=== PATIENT | male | born 1930 | race Caucasian/White ===

== ENCOUNTER 2017-07-19 13:23 | Inpatient (IN) | payer MEDICARE, OTHER ==
[2017-07-20] MEDS ORDERED: CEFAZOLIN/Water 2 GM/20 ML SYRINGE ONE (06:15)
[2017-07-20] MEDS ORDERED: Fentanyl 250 MCG/5 ML VIAL ONE ×2 (06:37→17:35)
[2017-07-20] MEDS ORDERED: Midazolam HCl 5 mg/5 ml Vial ONE (06:37)
[2017-07-20] MEDS ORDERED: Vecuronium 10 MG VIAL ONE ×2 (06:37→11:20)
[2017-07-20] MEDS ORDERED: Heparin 10,000 UNITS/1 ML VIAL 30,000 UNITS in Sodium Chloride 0.9% 1,000 ML FS SCH (07:00)
[2017-07-20] MEDS ORDERED: Mannitol 12.5 GM/50 ML ONE ×2 (07:31→11:20)
[2017-07-20] MEDS ORDERED: DOPamine 400 MG/D5W 250 ML 0 ML ONE (07:31)
[2017-07-20] MEDS ORDERED: Ropivacaine 0.2% HCl/PF 20 ML ONE (08:20)
[2017-07-20] MEDS ORDERED: Heparin 5,000 UNITS/ML VIAL ONE (08:20)
[2017-07-20] MEDS ORDERED: Nitroglycerin 50 MG/250 ML BOT 250 ML ONE (08:42)
[2017-07-20] MEDS ORDERED: Protamine Sulfate 50 MG/5 ML VIAL ONE (09:10)
[2017-07-20] MEDS ORDERED: Ropivacaine HCl/PF 500 ML in Premix Bag 1 BAG NERVE BLCK SCH (09:15)
[2017-07-20] MEDS ORDERED: Sodium Bicarb 50 MEQ/50 ML Abboject 8.4% SYRINGE ONE ×3 (10:23→19:17)
[2017-07-20] MEDS ORDERED: Albumin 25% 0 ML ONE (11:06)
[2017-07-20] MEDS ORDERED: Protamine Sulfate 250 MG/25 ML VIAL ONE (11:20)
[2017-07-20] MEDS ORDERED: Nitroglycerin 50 MG/250 ML BOT ONE (11:20)
[2017-07-20] MEDS ORDERED: Calcium Chloride 1 GM/10 ML Abboject SYRINGE ONE ×2 (11:20→11:23)
[2017-07-20] MEDS ORDERED: Ondansetron HCl/PF 4 MG/2 ML Vial ONE (11:20)
[2017-07-20] MEDS ORDERED: Glycopyrrolate 0.2 MG/ML 5 ML SYRINGE ONE (11:20)
[2017-07-20] MEDS ORDERED: PHENYLEPHRINE-NS 100 MCG/ML 10 ML SYRINGE ONE ×2 (11:20→11:23)
[2017-07-20] MEDS ORDERED: PROPOFOL 200 MG/20 ML VIAL ONE ×2 (11:20→11:23)
[2017-07-20] MEDS ORDERED: ePHEDrine/0.9% NaCl/PF SYRINGE 50 mg/10 ml ONE (11:20)
[2017-07-20] MEDS ORDERED: Heparin 10,000 UNITS/ 10 ML VIAL ONE (11:20)
[2017-07-20] MEDS ORDERED: Dexamethasone 20 MG/5 ML VIAL ONE (11:20)
[2017-07-20] MEDS ORDERED: Sodium Bicarb 50 MEQ/50 ML VIAL ONE (11:20)
[2017-07-20] MEDS ORDERED: Lidocaine 1% PF 5 ML VIAL ONE (11:23)
[2017-07-20] MEDS ORDERED: Ondansetron HCl/PF 4 MG/2 ML Vial IVP PRN ×4 (11:36→12:22)
[2017-07-20] MEDS ORDERED: diphenhydrAMINE 50 MG/ML VIAL IVP PRN (11:36)
[2017-07-20] MEDS ORDERED: diphenhydrAMINE 25 MG CAP PO PRN (11:36)
[2017-07-20] MEDS ORDERED: Fentanyl 5000 MCG/250 ML CADD IVPB PRN (11:36)
[2017-07-20] MEDS ORDERED: Zolpidem Tartrate 5 MG TAB PO PRN (11:36)
[2017-07-20] MEDS ORDERED: Naloxone HCl 0.4 mg/ml Vial IV PRN (11:36)
[2017-07-20] MEDS ORDERED: diphenhydrAMINE 50 MG/ML VIAL IM PRN (11:36)
[2017-07-20] MEDS ORDERED: Communication Order-Pharmacy FS SCH (11:45)
[2017-07-20] MEDS ORDERED: fentaNYL Citrate/PF 2,000 MCG in Sodium Chloride 0.9% 60 ML IV PRN (12:15)
[2017-07-20] MEDS ORDERED: Acetaminophen 325 MG TAB PO PRN (12:22)
[2017-07-20] MEDS ORDERED: Nitroglycerin 50 MG/250 ML BOT 250 ML IVPB PRN (12:22)
[2017-07-20] MEDS ORDERED: HYDROcodone/Acetaminophen 5/325 mg Tablet PO PRN ×3 (12:22→22:00)
[2017-07-20] MEDS ORDERED: hydrALAZINE 20 MG/ML VIAL SLOW IVP PRN (12:22)
[2017-07-20] MEDS ORDERED: Promethazine HCl 25 MG/ML VIAL IM PRN (12:22)
[2017-07-20] MEDS ORDERED: Albumin 5% 500 ML ONE (12:36)
[2017-07-20] MEDS ORDERED: Albumin 25% 100 ML ONE (12:46)
[2017-07-20 13:06] LABS: Hemoglobin 10.7 g/dL (14.0-18.0); Mean Corpuscular HGB CONC 32.8 g/dL (32.0-36.0); Mean Corpuscular Hemoglobin 28.7 pg (27.0-31.0); Mean Corpuscular Volume 87.6 fl (80.0-94.0); Mean Platelet Volume 8.4 fL (7.4-10.4); Platelet Count 97 thou/uL (130-400); RBC Distribution Width 15.9 % (11.5-14.5); Red Blood Cell (RBC) Count 3.73 mill/uL (4.70-6.10); White Blood Cell (WBC) Count 20.1 thou/uL (4.8-10.8)
[2017-07-20] MEDS ORDERED: Acetaminophen 1,000 MG in Premix Bag 1 BAG IVPB SCH (13:15)
[2017-07-20] MEDS: Sodium Chloride 0.9% 1,000 ML IV SCH ×2 (13:16→20:51)
[2017-07-20 13:20] LABS: Anion Gap 14 mmol/L (10-20); BUN (Urea Nitrogen) 27 mg/dL (8.4-25.7); Calc. Creatinine Clearance 42 mL/min (70-130); Calcium 8.2 mg/dL (7.8-10.44); Carbon Dioxide 15 mmol/L (23-31); Chloride 114 mmol/L (98-107); Estimated GFR-MDRD 46; Glucose 165 mg/dL (83-110); Potassium 4.1 mmol/L (3.5-5.1); Sodium 139 mmol/L (136-145)
[2017-07-20 13:24] LABS: Actual Bicarbonate (HCO3a) 14.6 mEq/L (22-26); Base Excess (BEa) -10.6 mEq/L (0 (+/-) 2.5); CO2 Tension 29.8 mmHg (35.0-45.0); Calcium, Ionized 1.2 mmol/L (1.12-1.30); Hematocrit-ABG 25.8 % (42.0-52.0); Hemoglobin (Hb) 8.9 g/dL (14.0-18.0); pH, Arterial 7.31 (7.35-7.45)
[2017-07-20 13:25] LABS: Puncture Site ALINE
[2017-07-20 13:28] LABS: Anisocytosis SLIGHT = 6-15 cells (100X) (0-5/hpf); Band 10 % (5-11); Burr Cells SLIGHT = 2-5 cells (100X) (0-1/hpf); Elliptocytes SLIGHT = 2-5 cells (100X) (0-1/hpf); Eosinophils 1 % (0-10); Lymphocytes 9 % (21-51); MDiff Complete? YES; Monocytes 4 % (0-10); Neutrophil 76 % (42-75); Ovalocytes SLIGHT = 2-5 cells (100X) (0-1/hpf); PLT Morphology Comment Appears Decreased; Polychromasia SLIGHT = 2-3 cells (100X) (0-2/hpf)
[2017-07-20] MEDS: Sodium Bicarb 50 MEQ/50 ML Abboject 8.4% SYRINGE IVP SCH ×3 (13:52→17:22)
[2017-07-20] MEDS: Sodium Bicarb 50 MEQ/50 ML Abboject 8.4% SYRINGE ONE ×2 (13:53→17:22)
--- NOTE | 2017-07-20 14:00 | OP ---
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 An 9mm Hemashield common femoral artery to profunda femoris bypass repair of left common femoral artery aneurysm. 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 SURGEON: Shiva Gaspar M.D. ANESTHESIA: General endotracheal anesthesia. BOX LIDDER: Tadeo. INDICATIONS: The patient is an 87-year-old man with an enlarging juxtarenal abdominal aortic aneurysm and left common femoral artery aneurysm. He has complex aneurysmal disease that anatomically is not suitable for endovascular repair. He has low to moderate risk nuclear stress test with respect to cardiac risk and after discussing options with him and his family, he has elected to proceed with open repair. FINDINGS: A large juxtarenal abdominal aortic aneurysm with aneurysmal involvement of both common iliac arteries. The left common femoral was aneurysmal with an occluded superficial femoral artery. Postoperatively, the patient had a palpable right dorsalis pedis pulse and a dopplerable left posterior tibial pulse. NARRATIVE REPORT: After informed consent was obtained, the patient was taken to the operating room and placed in supine position on the operating table. After the induction of general anesthesia, the patient's torso, groins and lower extremities were prepped and draped in sterile fashion. The patient's right upper chest is prepped and draped in sterile fashion using the Seldinger technique. A triple-lumen central line kit was used to place a right subclavian central line. All three ports easily aspirated and flushed. The line was secured and dressed. The patient's torso, groins and lower extremities were then prepped and draped in sterile fashion. An oblique incision was made about a fingerbreadth below and parallel to the left groin crease and the common femoral artery aneurysm was easily appreciable. It was exposed up to its neck tortuous common femoral proximally, it extended down to the common femoral bifurcation. The SFA and profunda were isolated. That wound was packed off and then a vertical midline celiotomy incision was made from roughly xiphoid to pubis entering the upper abdomen. Initially, a brief visual and manual examination of the abdomen was undertaken. The colon was up over the liver as suggested by the patient's preoperative chest x-ray. The aneurysm was quite readily appreciable. Otherwise, there were no overt abnormalities noted. Self-retraining retractors were put into place after first having lysed the ligament of Treitz and incised retroperitoneal tissues overlying the aneurysm. The dissection was taken down onto the common femorals exposing and isolating the external and internal iliacs on either side. They were looped with umbilical tapes. The dissection was then carried out at the neck. The right and left renal arteries and the superior mesenteric artery were identified. The aneurysm wit up to the origin of the renal arteries necessitating suprarenal clamping. The patient was heparinized and given mannitol. After adequate circulation time of heparin, the iliac bifurcations were occluded using vascular clamps to do an en alka clamping of the external and internal iliacs on either side and then a CRAFOORD clamp was placed between the superior mesenteric and the renal arteries to clamp the neck of the aneurysm. The aneurysm was opened with electrocautery and scissors. Backbleeding from lumbars was controlled with silk ligatures. An 18 x 9 mm Hemashield graft was selected. The aortic portion of the graft was trimmed to length and then an end-to-end anastomosis was constructed from it to the aorta at the level of the renal arteries. The graft was flushed and the suture line inspected for hemostasis, which appeared grossly adequate. The clamp was moved down onto the graft to reestablish flow into the renal arteries for a suprarenal clamp time of 19 minutes. The iliac arteries were then bisected longitudinally, taking them down to the bifurcation where there were heavy transected. The right limb of the graft was trimmed to length with bevel orienting it such that the toe of the anastomosis would go on the medial apex of the internal iliac orifice and the heel at the lateral apex of the external iliac orifice. An end-to-end anastomosis was then constructed there with a running 5-0 Prolene. The iliacs were allowed to backbleed and the graft flushed and the suture lines secured. Antegrade flow is allowed first into the internal iliac and then into the external iliac. The left limb of the graft was then similarly anastomosed to the left common iliac bifurcation. The suture lines were inspected for gross hemostasis and then packed off with lap sponges and the aortic aneurysm bed reinspected for adequacy of control of the lumbars which required additional [id number]-cb-[id number] sutures to achieve adequate hemostasis. Proximal and distal control was established on the left femoral system and the femoral artery was opened. Small side branches between the proximal clamp and the bifurcation were controlled with Hemoclips. A portion of the 9 mm graft that had been excised from one of the limbs was anastomosed end-to-end to the common femoral artery. The superficial femoral artery proved to be occluded. The profunda was spatulated and an end-to-end anastomosis constructed there to reestablish flow into the deep femoral system. Protamine was administered. Hemostasis at the groin level required multiple small pledgeted sutures. There was one point on the proximal aortic suture line that also required a pledgeted suture to control suture line bleeding when hemostasis was adequate. The aneurysm was reapproximated with running Vicryl and over the graft and the retroperitoneal tissues reapproximated over that. The midline abdominal fascia was closed with double stranded #1 PDS. The groin wound was then irrigated and inspected for hemostasis. The aneurysm was closed with running Vicryl over the graft and then the subcutaneous tissue was reapproximated in deep and superficial layers of running Vicryl. The skin was closed with a 4-0 Vicryl subcuticular suture which was then reinforced with running nylon skin suture. The abdominal wound was irrigated and inspected for hemostasis. ON-Q painbuster catheters were introduced into the wound and then the subcutaneous tissue reapproximated over them. Skin was closed with running Vicryl subcuticular suture which was then reinforced with running nylon 5 mL of 0.2% ropivacaine were bolused in each of the 2 catheters been placed just superficial to the abdominal fascia. The patient was awakened and extubated in the operating room and taken to the Intensive Care Unit in stable condition. Estimated blood loss during the procedure was 2000 mL. The patient received 3500 mL of crystalloid, 100 mL of 25% albumin and 1508 mL of Cell Saver transfusion. Urine output was 160 mL. Instrument, needle, and sponge counts were correct. [facility]
--- NOTE | 2017-07-20 14:56 | RAD ---
CHEST ONE VIEW: History: Central line placement. Comparison: 07-19-17 FINDINGS: Cardiac silhouette is magnified and upper limits of normal in size. Pulmonary vascular is upper limit s of normal and accentuated by shallow inspiration. Tip of a right subclavian central venous catheter projects over the right atrium. Left subclavian pacer remains in place. No evidence of pneumothorax. IMPRESSION: 1. Right subclavian central venous catheter is in good radiographic position. 2. Borderline pulmonary vascular congestion. POS: [facility]
[2017-07-20 15:17] LABS: pH, Arterial 7.33 (7.35-7.45)
[2017-07-20 15:18] LABS: Actual Bicarbonate (HCO3a) 12.2 mEq/L (22-26); Base Excess (BEa) -12.5 mEq/L (0 (+/-) 2.5); CO2 Tension 23.6 mmHg (35.0-45.0); Hematocrit-ABG 20.4 % (42.0-52.0); Hemoglobin (Hb) 7.1 g/dL (14.0-18.0); O2 Tension (PaO2) 146.2 mmHg (80.0-100.0)
[2017-07-20 15:19] LABS: Calcium, Ionized 1.1 mmol/L (1.12-1.30); Puncture Site ALINE
[2017-07-20 15:51] LABS: Hemoglobin 7.5 g/dL (14.0-18.0)
[2017-07-20] MEDS ORDERED: Calcium Chloride 1 GM/10 ML Abboject SYRINGE IVP SCH (17:15)
[2017-07-20] MEDS ORDERED: Sodium Bicarb 50 MEQ/50 ML Abboject 8.4% SYRINGE IVP SCH (17:15)
[2017-07-20 17:23] LABS: Actual Bicarbonate (HCO3a) 9.6 mEq/L (22-26); Base Excess (BEa) -20.5 mEq/L (0 (+/-) 2.5); CO2 Tension 39.5 mmHg (35.0-45.0); Hematocrit-ABG 24.4 % (42.0-52.0); Hemoglobin (Hb) 9.5 g/dL (14.0-18.0); O2 Tension (PaO2) 124.6 mmHg (80.0-100.0); pH, Arterial 7.01 (7.35-7.45)
[2017-07-20 17:24] LABS: ALV-art Gradient 25.665 (0-20); Puncture Site ALINE
[2017-07-20] MEDS ORDERED: Midazolam HCl 2 mg/2 ml Vial ONE (17:35)
[2017-07-20] MEDS ORDERED: Fentanyl 100 MCG/2 ML VIAL ONE (17:35)
[2017-07-20 17:40] LABS: INR-International Normal Ratio 3.3; Prothrombin Time 35.4 SEC (12.0-14.7)
[2017-07-20 17:41] LABS: PTT 96.3 SEC (22.9-36.1)
[2017-07-20] MEDS ORDERED: Vasopressin 40 UNIT, Admixture Fee 1 EACH in Sodium Chloride 0.9% 100 ML IV SCH (17:45)
[2017-07-20] MEDS ORDERED: Heparin 10,000 UNITS/1 ML VIAL ONE (18:08)
[2017-07-20] MEDS: Acetaminophen 1,000 MG in Premix Bag 1 BAG IVPB SCH ×2 (20:52→23:19)
[2017-07-20 21:10] LABS: Actual Bicarbonate (HCO3a) 16.1 mEq/L (22-26); Base Excess (BEa) -10.1 mEq/L (0 (+/-) 2.5); CO2 Tension 36.6 mmHg (35.0-45.0); O2 Tension (PaO2) 425.2 mmHg (80.0-100.0); pH, Arterial 7.26 (7.35-7.45)
[2017-07-20 21:11] LABS: Calcium, Ionized 1.1 mmol/L (1.12-1.30); Hematocrit-ABG 26.5 % (42.0-52.0); Hemoglobin (Hb) 10.9 g/dL (14.0-18.0); Puncture Site LINE
--- NOTE | 2017-07-20 21:47 | RAD ---
AP CHEST: Indication: ET tube placement. IMPRESSION: ET tube tip is seen in the thoracic lumen. Right subclavian central venous catheter is unchanged. The re is a single lead pacemaker is similar. Pulmonary vascular and mild cardiomegaly persists. No pneum othorax is evident. POS: [facility]
[2017-07-20 22:36] LABS: Band 5 % (5-11); Hemoglobin 11.4 g/dL (14.0-18.0); Lymphocytes 13 % (21-51); MDiff Complete? YES; Mean Corpuscular HGB CONC 33.3 g/dL (32.0-36.0); Mean Corpuscular Hemoglobin 29.6 pg (27.0-31.0); Mean Corpuscular Volume 88.9 fl (80.0-94.0); Mean Platelet Volume 8.2 fL (7.4-10.4); Metamyelocyte 1 % (0-0); Monocytes 3 % (0-10); Neutrophil 77 % (42-75); PLT Morphology Comment Appears Decreased; Platelet Count 74 thou/uL (130-400); Polychromasia SLIGHT = 2-3 cells (100X) (0-2/hpf); RBC Distribution Width 14.4 % (11.5-14.5); Reactive Lymphocytes 1 % (0-10); Red Blood Cell (RBC) Count 3.84 mill/uL (4.70-6.10); White Blood Cell (WBC) Count 11.3 thou/uL (4.8-10.8)
[2017-07-20 22:39] LABS: Anion Gap 28 mmol/L (10-20); BUN (Urea Nitrogen) 27 mg/dL (8.4-25.7); Calc. Creatinine Clearance 31 mL/min (70-130); Calcium 8.3 mg/dL (7.8-10.44); Carbon Dioxide 17 mmol/L (23-31); Chloride 114 mmol/L (98-107); Estimated GFR-MDRD 37; Glucose 142 mg/dL (83-110); Potassium 4.3 mmol/L (3.5-5.1); Sodium 155 mmol/L (136-145)
[2017-07-20] MEDS ORDERED: Propofol 1,000 MG/100 ML VIAL IV PRN (23:03)
[2017-07-20] MEDS ORDERED: DISCONTINUE PREVIOUS NARCOTIC PAIN MEDICATIONS AND BENZODIAZEPINES FS SCH (23:03)
[2017-07-20] MEDS ORDERED: Propofol BOLUS 1,000 MG/100 ML VIAL IV PRN (23:03)
[2017-07-20] MEDS ORDERED: Morphine 4 MG/ML VIAL SLOW IVP PRN (23:03)
[2017-07-20] MEDS ORDERED: Fentanyl BOLUS 250 ML IVPB PRN (23:03)
[2017-07-20] MEDS ORDERED: Lorazepam 2 MG/ML VIAL SLOW IVP PRN (23:03)
[2017-07-20] MEDS ORDERED: fentaNYL Citrate/PF 2,000 MCG in Sodium Chloride 0.9% 60 ML IV SCH (23:03)
[2017-07-20 23:35] LABS: CO2 Tension 24.7 mmHg (35.0-45.0); pH, Arterial 7.41 (7.35-7.45)
[2017-07-20 23:36] LABS: O2 Tension (PaO2) 216.7 mmHg (80.0-100.0)
[2017-07-20 23:37] LABS: Actual Bicarbonate (HCO3a) 15.2 mEq/L (22-26); Hematocrit-ABG 27.3 % (42.0-52.0); Hemoglobin (Hb) 10.7 g/dL (14.0-18.0)
[2017-07-20 23:40] LABS: Puncture Site LINE
[2017-07-20 23:41] LABS: ALV-art Gradient 180.225 (0-20)
[2017-07-21 00:39] LABS: #Eosinphils 0.1 thou/uL (0.0-0.7); #Lymphocytes 0.9 thou/uL (1.20-3.40); #Monocytes 0.8 thou/uL (0.11-0.59); #Neutrophils 9.7 thou/uL (1.40-6.50); %Basophils 0.3 % (0.0-1.0); %Eosinophils 0.6 % (0.0-10.0); %Lymphocytes 8.1 % (21.0-51.0); %Monocytes 7.2 % (0.0-10.0); %Neutrophils 83.8 % (42.0-75.0); Hemoglobin 10.7 g/dL (14.0-18.0); Mean Corpuscular HGB CONC 33.6 g/dL (32.0-36.0); Mean Corpuscular Hemoglobin 28.7 pg (27.0-31.0); Mean Corpuscular Volume 85.3 fl (80.0-94.0); Mean Platelet Volume 8.5 fL (7.4-10.4); Platelet Count 63 thou/uL (130-400); RBC Distribution Width 14.3 % (11.5-14.5); Red Blood Cell (RBC) Count 3.72 mill/uL (4.70-6.10); White Blood Cell (WBC) Count 11.5 thou/uL (4.8-10.8)
[2017-07-21 00:51] LABS: Anion Gap 28 mmol/L (10-20); BUN (Urea Nitrogen) 29 mg/dL (8.4-25.7); Calc. Creatinine Clearance 28 mL/min (70-130); Calcium 8.3 mg/dL (7.8-10.44); Carbon Dioxide 17 mmol/L (23-31); Chloride 113 mmol/L (98-107); Estimated GFR-MDRD 33; Glucose 143 mg/dL (83-110); Potassium 4.2 mmol/L (3.5-5.1); Sodium 154 mmol/L (136-145)
--- NOTE | 2017-07-21 01:02 | OP ---
DATE OF PROCEDURE: 07/20/2017 PROCEDURES PERFORMED: Abdominal exploration and control of bleeding with repair of bilateral distal anastomoses. PREOPERATIVE DIAGNOSES: Bleeding, status post aortobiiliac repair of combined aortic and common aurelio c aneurysmal disease. POSTOPERATIVE DIAGNOSES: Bleeding, status post aortobiiliac repair of combined aortic and common charlie ac aneurysmal disease. SURGEON: Shiva Gaspar MD ANESTHESIA: General endotracheal anesthesia. INDICATIONS: Patient is an 87-year-old man with complex aneurysmal disease, who shortly postoperativ enio receiving IV narcotics for pain control, had a drop in his blood pressure that responded to volum e administration. He had been relatively volume dependent. During his original operation and after receiving about 2 liters of fluid, dropped his hemoglobin from the initial 10-12 range immediately po stoperatively down to around 7 in spite of his abdomen being soft and his groin incision for his femo ral aneurysm repair being soft. He also developed acidosis and while one could achieve transient imp rovements with transfusion and volume administration, bicarbonate, and pressors. He was becoming rel atively refractory to those maneuvers and is elected to return him to the operating room for empiric reexploration for possible bleeding. FINDINGS: Discrete punctate bleeding from the left graft to iliac anastomosis and oozing from the ri ght distal anastomosis with more discrete bleeding unmasked with manipulation. NARRATIVE REPORT: After informing the patient's , the patient was transported urgently to the op erating room and placed in the supine position on the operating table. General endotracheal anesthes ia was induced. His dressings were removed and his torso, groins, and lower extremities were prepped and draped in sterile fashion. The sutures of the abdominal incision were removed, and the abdomen re-entered and Kathi retractor put into place. While there was fair amount of old appearing blood in the abdominal cavity. Initially, there was no fresh appearing blood, but during a very brief xavier od of observation, some bright red blood could be appreciated welling up in between the sutures used retroperitonealize the aorta and the graft. The sutures were cut and removed and self-retaining retr actors were positioned. There was no bleeding coming from the mesentery or the proximal anastomosis. The left renal vein or any of the branch vessels near the neck of the aneurysm upon distal explorat ion, bleeding could be appreciated coming from the left distal anastomosis that was controlled with f forest pressure while additional retractors were brought into place. A eappnt-qi-kzsth Prolene suture fairly easily addressed, the bleeding coming from that suture line. Upon exploration of the right distal anastomosis, there was some oozing coming from the pilot point vessel near the anastomosis along the internal iliac in an attempt to buttress that with a suture that bega n bleeding far more profusely, which required several ozpmcx-rj-nxrwb Prolene sutures to bring under control. Upon reexploration of the right distal anastomosis prior to closure and additional bleeding point on the suture line was appreciated in it. This was controlled with a mvriox-lx-airmp suture. The aneurysm bed was again reinspected. No further ongoing bleeding was noted, although the patient was grossly coagulopathic consistent with the laboratory findings of a markedly prolonged INR. Plas ma was administered along with other blood products and the wounds packed off as the oozing came unde r better control. The wound was closed. The aneurysm and the retroperitoneal tissues were reapproxi mated over the graft. The bowel was inspected, although there was significant retroperitoneal hemato ma. The bowel itself appeared well vascularized. The midline fascia was closed with double-stranded #1 PDS. The subcutaneous tissue was irrigated and reapproximated with ON-Q pain Buster catheters an d the skin was closed with Vicryl subcuticular suture, which was then reinforced with running nylon. Based on Cell Saver transfusion of 411 mL of combined old and new blood, estimated blood loss was ca lled 1000 mL. Patient received 2000 mL of crystalloid, 2 units of packed cells, and 2 units of plasm a. URINE OUTPUT: 50 mL. Instrument, needle, and sponge counts were correct.
[2017-07-21] MEDS: Sodium Chloride 0.9% 1,000 ML IV SCH (01:44)
[2017-07-21 01:45] LABS: pH, Arterial 7.52 (7.35-7.45)
[2017-07-21 01:46] LABS: Actual Bicarbonate (HCO3a) 17.3 mEq/L (22-26); Base Excess (BEa) -4.3 mEq/L (0 (+/-) 2.5); CO2 Tension 21.8 mmHg (35.0-45.0); Hematocrit-ABG 25.3 % (42.0-52.0); Hemoglobin (Hb) 9.7 g/dL (14.0-18.0); O2 Tension (PaO2) 155.2 mmHg (80.0-100.0)
[2017-07-21 01:47] LABS: Puncture Site LINE
[2017-07-21 02:16] LABS: #Lymphocytes 1.5 thou/uL (1.20-3.40); #Monocytes 0.7 thou/uL (0.11-0.59); #Neutrophils 9.6 thou/uL (1.40-6.50); %Basophils 0.1 % (0.0-1.0); %Eosinophils 0.3 % (0.0-10.0); %Lymphocytes 12.7 % (21.0-51.0); %Monocytes 5.7 % (0.0-10.0); %Neutrophils 81.1 % (42.0-75.0); Hemoglobin 10.1 g/dL (14.0-18.0); Mean Corpuscular HGB CONC 34.3 g/dL (32.0-36.0); Mean Corpuscular Hemoglobin 28.8 pg (27.0-31.0); Mean Corpuscular Volume 84.1 fl (80.0-94.0); Mean Platelet Volume 7.6 fL (7.4-10.4); Platelet Count 126 thou/uL (130-400); RBC Distribution Width 14.3 % (11.5-14.5); Red Blood Cell (RBC) Count 3.49 mill/uL (4.70-6.10); White Blood Cell (WBC) Count 11.8 thou/uL (4.8-10.8)
[2017-07-21 02:22] LABS: Anion Gap 21 mmol/L (10-20); BUN (Urea Nitrogen) 31 mg/dL (8.4-25.7); Calc. Creatinine Clearance 27 mL/min (70-130); Calcium 8.5 mg/dL (7.8-10.44); Carbon Dioxide 20 mmol/L (23-31); Chloride 115 mmol/L (98-107); Estimated GFR-MDRD 32; Glucose 136 mg/dL (83-110); Sodium 152 mmol/L (136-145)
[2017-07-21] MEDS ORDERED: Sodium Chloride 0.45% 1,000 ML IV SCH (02:45)
[2017-07-21 04:01] LABS: #Lymphocytes 1.2 thou/uL (1.20-3.40); #Monocytes 0.9 thou/uL (0.11-0.59); #Neutrophils 10.4 thou/uL (1.40-6.50); %Basophils 0.1 % (0.0-1.0); %Eosinophils 0.3 % (0.0-10.0); %Lymphocytes 9.6 % (21.0-51.0); %Monocytes 7.1 % (0.0-10.0); %Neutrophils 82.9 % (42.0-75.0); Mean Corpuscular HGB CONC 34.7 g/dL (32.0-36.0); Mean Corpuscular Hemoglobin 29.2 pg (27.0-31.0); Mean Corpuscular Volume 84.2 fl (80.0-94.0); Mean Platelet Volume 7.8 fL (7.4-10.4); Platelet Count 121 thou/uL (130-400); RBC Distribution Width 14.4 % (11.5-14.5); Red Blood Cell (RBC) Count 3.43 mill/uL (4.70-6.10); White Blood Cell (WBC) Count 12.6 thou/uL (4.8-10.8)
[2017-07-21 04:13] LABS: Anion Gap 22 mmol/L (10-20); BUN (Urea Nitrogen) 33 mg/dL (8.4-25.7); Calc. Creatinine Clearance 25 mL/min (70-130); Calcium 8.3 mg/dL (7.8-10.44); Carbon Dioxide 22 mmol/L (23-31); Chloride 113 mmol/L (98-107); Estimated GFR-MDRD 28; Glucose 120 mg/dL (83-110); Potassium 3.9 mmol/L (3.5-5.1); Sodium 153 mmol/L (136-145)
[2017-07-21] MEDS: Acetaminophen 1,000 MG in Premix Bag 1 BAG IVPB SCH ×3 (05:19→17:43)
[2017-07-21] MEDS: Norepinephrine 8 MG/250 ML BAG IVPB PRN ×4 (05:20→22:12)
[2017-07-21 06:33] LABS: Anion Gap 20 mmol/L (10-20); BUN (Urea Nitrogen) 33 mg/dL (8.4-25.7); Calc. Creatinine Clearance 27 mL/min (70-130); Calcium 8.2 mg/dL (7.8-10.44); Carbon Dioxide 24 mmol/L (23-31); Chloride 113 mmol/L (98-107); Estimated GFR-MDRD 27; Glucose 105 mg/dL (83-110); Potassium 3.9 mmol/L (3.5-5.1); Sodium 153 mmol/L (136-145)
[2017-07-21 06:46] LABS: Band 12 % (5-11); Hemoglobin 10.1 g/dL (14.0-18.0); Lymphocytes 10 % (21-51); MDiff Complete? YES; Mean Corpuscular HGB CONC 34.3 g/dL (32.0-36.0); Mean Corpuscular Hemoglobin 28.8 pg (27.0-31.0); Mean Platelet Volume 7.8 fL (7.4-10.4); Metamyelocyte 2 % (0-0); Monocytes 4 % (0-10); Neutrophil 69 % (42-75); PLT Morphology Comment Appears Decreased; Platelet Count 123 thou/uL (130-400); RBC Distribution Width 14.5 % (11.5-14.5); RBC Morphology Normal; Reactive Lymphocytes 3 % (0-10); Red Blood Cell (RBC) Count 3.49 mill/uL (4.70-6.10); White Blood Cell (WBC) Count 14.4 thou/uL (4.8-10.8)
[2017-07-21 06:54] LABS: pH, Arterial 7.58 (7.35-7.45)
[2017-07-21 06:55] LABS: Actual Bicarbonate (HCO3a) 20.4 mEq/L (22-26); Base Excess (BEa) -0.4 mEq/L (0 (+/-) 2.5); Hematocrit-ABG 24.3 % (42.0-52.0); Hemoglobin (Hb) 9.6 g/dL (14.0-18.0); O2 Tension (PaO2) 137.3 mmHg (80.0-100.0); Puncture Site ALINE
[2017-07-21] MEDS ORDERED: Sodium Chloride 0.45 % 250 ML BAG IV SCH (07:15)
[2017-07-21] MEDS ORDERED: Albumin 25% 25 GM/100 ML BOT IVPB SCH (08:00)
[2017-07-21] MEDS ORDERED: Sodium Chloride 0.9% 1,000 ML IV SCH (08:00)
[2017-07-21] MEDS ORDERED: Prevnar 13-Val Conj/PF 0.5 ML SYRINGE IM ONE (09:00)
--- NOTE | 2017-07-21 09:06 | RAD ---
SINGLE VIEW OF THE CHEST: COMPARISON: 07/20/17. HISTORY: Abdominal aortic aneurysm repair. On ventilator. FINDINGS: A single view of the chest shows an enlarged but stable cardiomediastinal silhouette. The lines and tubes are unchanged in position. The pacemaker is unchanged in position. There is no evidence of co nsolidation, mass, pneumothorax, or pleural effusion. IMPRESSION: Stable exam. POS: [facility]
[2017-07-21] MEDS ORDERED: DC Sedation Protocol FS ONE (09:08)
[2017-07-21] MEDS ORDERED: fentaNYL Citrate/PF 2,000 MCG in Sodium Chloride 0.9% 60 ML IV PRN (09:14)
[2017-07-21 09:50] LABS: Magnesium 1.6 mg/dL (1.6-2.6); Phosphorus 3.5 mg/dL (2.3-4.7)
[2017-07-21] MEDS: Pantoprazole 40 MG VIAL IVP SCH (09:55)
[2017-07-21] MEDS: Sodium Chloride 0.45% 1,000 ML IV SCH ×2 (11:10→17:44)
[2017-07-21] MEDS ORDERED: Furosemide 40 MG/4 ML VIAL SLOW IVP SCH (13:45)
[2017-07-21] MEDS: Albumin 25% 25 GM/100 ML BOT IVPB SCH ×2 (14:44→20:33)
--- NOTE | 2017-07-21 16:22 | CON ---
DATE OF CONSULTATION: 07/21/2017 HISTORY OF PRESENT ILLNESS: Mr. Gonzalez Fountain is an 87-year-old gentleman from [place], [place], who came in for elective abdominal aneurysm surgery. He was taken to surgery on the . Post-surgery, he developed hypertension, requiring volume replacement and apparently he had agonal respirations backed, he was intubated and taken down to the OR for reexploration. Please review the surgeon's note. Apparently, he had some postoperative leak, which was controlled, repair of distal anastomoses. He is now in the vent intubated. Pulse 92, blood pressure 100/61, sats are98%__ , negative inspiratory pressure 28. Patient is a nonsmoker as per the . Never had any previous history of TB, pneumonia, or bronchial asthma. In fact, the patient has been relatively healthy, though he does have limitation to activity. PAST MEDICAL HISTORY: Pertinent for, 1. Chronic renal failure with apparently polycystic kidney disease. 2. History of pacemaker, never had a myocardial infarction. 3. History of arthritis. 4. Hypertension. HOME MEDICATIONS: Aspirin, vitamin D, simvastatin 20, losartan 50, eyedrops, multivitamin, Tylenol, Gaviscon. PAST SURGICAL HISTORY: Skin surgery, abdominal aortic aneurysm, hypotension, tonsils and adenoids, bilateral cataract surgery, hemorrhoid surgery, pacemaker. ALCOHOL: None. TOBACCO: None. ALLERGIES: None. SOCIAL FAMILY HISTORY: Unremarkable from my standpoint. PHYSICAL EXAMINATION: GENERAL: Sats are 98%, pulse 90, blood pressure 100/80. GENERAL: Awake, alert and responsive. CHEST: Decreased breath sounds, no wheezing. CARDIAC: Normal S1, S2, no gallops. ABDOMEN: Distended, soft. EXTREMITIES: No edema. NEUROLOGIC: Awake, alert, responsive. X-RAY FINDINGS: His chest x-ray shows some cardiomegaly, pacemaker. LABORATORY DATA: White count 14,000, H and H is 10 and 30, platelet count 123. His pO2 was 137, pCO236_, creatinine 2.3, sodium is 153. IMPRESSION: 1. Status post abdominal aortic aneurysm repair, open with postop hypertension requiring reexploration for leaking anastomosis. 2. Advanced age. 3. Status post pacemaker. 4. Renal failure. 5. Electrolyte imbalance. PLAN: Echo has been ordered, appropriate lab. He will be extubated. PT, supportive care, nutrition. A 45-minute critical care time. We will follow. [facility]
[2017-07-21] MEDS: Hydrocortisone Sod Succ/PF 100 mg/2 ml Vial IVP SCH ×2 (17:44→23:16)
[2017-07-21] MEDS ORDERED: Heparin 5,000 UNITS/ML VIAL SC SCH (21:00)
[2017-07-21] MEDS ORDERED: HYDROcodone/Acetaminophen 5/325 mg Tablet PO PRN ×2 (22:00)
[2017-07-22] MEDS: Sodium Chloride 0.45% 1,000 ML IV SCH ×3 (01:55→18:15)
[2017-07-22] MEDS: Albumin 25% 25 GM/100 ML BOT IVPB SCH (01:55)
[2017-07-22] MEDS ORDERED: Albumin 25% 25 GM/100 ML BOT IVPB ONE (03:00)
[2017-07-22] MEDS: Acetaminophen 325 MG TAB PO PRN (05:18)
[2017-07-22] MEDS: Hydrocortisone Sod Succ/PF 100 mg/2 ml Vial IVP SCH ×3 (05:19→17:11)
[2017-07-22 05:54] LABS: Band 37 % (5-11); Hemoglobin 8.3 g/dL (14.0-18.0); Lymphocytes 6 % (21-51); MDiff Complete? YES; Mean Corpuscular Hemoglobin 28.6 pg (27.0-31.0); Mean Corpuscular Volume 86.6 fl (80.0-94.0); Monocytes 5 % (0-10); Neutrophil 52 % (42-75); PLT Morphology Comment Appears Decreased; Platelet Count 67 thou/uL (130-400); RBC Distribution Width 14.9 % (11.5-14.5); Red Blood Cell (RBC) Count 2.89 mill/uL (4.70-6.10); White Blood Cell (WBC) Count 17.3 thou/uL (4.8-10.8)
[2017-07-22 06:38] LABS: Anion Gap 18 mmol/L (10-20); BUN (Urea Nitrogen) 46 mg/dL (8.4-25.7); Calc. Creatinine Clearance 18 mL/min (70-130); Carbon Dioxide 24 mmol/L (23-31); Chloride 109 mmol/L (98-107); Estimated GFR-MDRD 16; Glucose 107 mg/dL (83-110); Potassium 4.4 mmol/L (3.5-5.1); Sodium 147 mmol/L (136-145)
--- NOTE | 2017-07-22 08:32 | PRG ---
DATE OF SERVICE: 07/22/2017 This morning he is awake, alert, responsive, still on Levophed. PHYSICAL EXAMINATION: VITAL SIGNS: Blood pressure is 126/52 on the A-line. Pulse is 72, sats 99%, respirations 20. His I 's and O's over the last 24 hours 4144 in, 682 out. CHEST: Chest reveals bilateral rhonchi. CARDIAC: Normal S1, S2, no gallops. ABDOMEN: Soft, no mass. LABORATORY: BNP was 261.72. TSH is normal. Cortisol level is 23 when his blood pressure systolic w as 80 suggesting of a relative adrenal insufficiency. His creatinine is 3.68, slightly higher than yesterday's, BUN of 46. BNP was 261.72. He has got 52 neutrophils, 37 bands, a big left shift, H&H 8 and 25, platelet count is 67. IMPRESSION: 1. Respiratory failure. 2. Status post abdominal aortic repair with hypertension. 3. Renal failure. 4. Severe deconditioning. 5. Abnormal chest x-ray, small pleural effusion. 6. Probably congestive heart failure. 7. Hypertension. PLAN: Continue stress dose of steroids. May initiate broad-spectrum antibiotics, adjust for the nathaniel al failure, neb treatments, supportive care. Continue following in the ICU. If condition gets worse renal diehl, input from Nephrology. One-half hour critical care time.
--- NOTE | 2017-07-22 08:42 | RAD ---
PORTABLE SEMIUPRIGHT FRONTAL CHEST RADIOGRAPH: Date: 07/22/17 COMPARISON: 07/21/17. HISTORY: Evaluate chest following abdominal aortic aneurysm repair. FINDINGS: Endotracheal tube present on the prior examination is no longer visualized. Nasogastric tube extends into midline upper abdomen. Right-sided vascular catheter present, distal tip overlying region of cav oatrial junction. Markedly shallow inspiration limits assessment of the lung parenchyma, particularly the bases and perihilar regions. There is increased density in the left base with obscuration of the left hemidiaphragm suggesting partial consolidation/collapse of the left lower lobe. IMPRESSION: Lines and tubes as above. Dense opacity in the left base persists. POS: [facility]
[2017-07-22] MEDS ORDERED: Cefepime 1 GM in Sodium Chloride 0.9% 100 ML IVPB SCH (09:00)
[2017-07-22] MEDS: Cefepime 1 GM, Admixture Fee 1 EACH in Sodium Chloride 0.9% 10 ML SLOW IVP SCH ×2 (09:20→20:17)
[2017-07-22] MEDS ORDERED: Pantoprazole 40 MG VIAL IVP SCH (10:15)
[2017-07-22] MEDS: Pantoprazole 40 MG VIAL IVP SCH (11:32)
[2017-07-22] MEDS: Acetaminophen 1,000 MG in Premix Bag 1 BAG IVPB SCH (16:42)
[2017-07-22] MEDS ORDERED: Furosemide 20 MG/2 ML VIAL IVP SCH (17:00)
[2017-07-22] MEDS ORDERED: Norepinephrine 8 MG/250 ML BAG IVPB PRN (19:45)
[2017-07-23] MEDS: Sodium Chloride 0.45% 1,000 ML IV SCH ×2 (00:06→15:10)
[2017-07-23] MEDS: Hydrocortisone Sod Succ/PF 100 mg/2 ml Vial IVP SCH ×5 (00:07→23:48)
[2017-07-23] MEDS: Lacri-Lube Opth Oint 3.5 GM TUBE EA EYE PRN (00:23)
[2017-07-23] MEDS: Acetaminophen 325 MG TAB PO PRN ×3 (00:25→18:27)
[2017-07-23] MEDS: Pantoprazole 40 MG VIAL IVP SCH (08:03)
[2017-07-23] MEDS: Cefepime 1 GM, Admixture Fee 1 EACH in Sodium Chloride 0.9% 10 ML SLOW IVP SCH (08:03)
--- NOTE | 2017-07-23 10:18 | PRG ---
DATE OF SERVICE: 07/23/2017 SUBJECTIVE: The patient is doing better today. He had to be started on Levophed last night for refr actory hypotension. OBJECTIVE: VITAL SIGNS: His temperature 97.8, pulse 67, blood pressure 140/75, O2 sat 100%, 3 mcg per minute of Levophed. HEENT: Unremarkable. NECK: No JVD. LUNGS: Clear. CARDIAC: S1 and S2 regular. ABDOMEN: Soft, nontender. Surgical site looks good. Scrotum is swollen. EXTREMITIES: No edema. LABORATORY DATA: No labs were done today. ASSESSMENT: 1. Status post laparotomy for AAA repair. 2. Status post respiratory failure. 3. Labile blood pressure, probably some component of failure. 4. Prerenal azotemia. PLAN: 1. Continuing low dose IV fluids. 2. Wean off Levophed as tolerated. 3. Hopefully can be weaned off the vasopressors and sent out from the ICU in the next couple of days .
[2017-07-23 10:21] LABS: Anion Gap 17 mmol/L (10-20); BUN (Urea Nitrogen) 63 mg/dL (8.4-25.7); Calc. Creatinine Clearance 14 mL/min (70-130); Calcium 8.1 mg/dL (7.8-10.44); Carbon Dioxide 23 mmol/L (23-31); Chloride 108 mmol/L (98-107); Estimated GFR-MDRD 12; Glucose 109 mg/dL (83-110); Potassium 4.2 mmol/L (3.5-5.1); Sodium 144 mmol/L (136-145)
[2017-07-23 11:17] LABS: Hemoglobin 10.8 g/dL (14.0-18.0); Mean Corpuscular HGB CONC 32.6 g/dL (32.0-36.0); Mean Corpuscular Hemoglobin 28.4 pg (27.0-31.0); Mean Corpuscular Volume 87.1 fl (80.0-94.0); Mean Platelet Volume 10.6 fL (7.4-10.4); Platelet Count 44 thou/uL (130-400); RBC Distribution Width 14.3 % (11.5-14.5); Red Blood Cell (RBC) Count 3.82 mill/uL (4.70-6.10); White Blood Cell (WBC) Count 17.6 thou/uL (4.8-10.8)
[2017-07-23 11:26] LABS: Band 17 % (5-11); Lymphocytes 10 % (21-51); MDiff Complete? YES; Metamyelocyte 2 % (0-0); Monocytes 4 % (0-10); Neutrophil 67 % (42-75); PLT Morphology Comment Appears Decreased; Polychromasia SLIGHT = 2-3 cells (100X) (0-2/hpf)
[2017-07-23] MEDS: Nystatin Powder 15 GM BOT TOP PRN (12:05)
[2017-07-23] MEDS: Chloraseptic Spray 180 ml Bottle PO PRN (14:01)
[2017-07-24 04:21] LABS: Anion Gap 16 mmol/L (10-20); BUN (Urea Nitrogen) 67 mg/dL (8.4-25.7); Calc. Creatinine Clearance 13 mL/min (70-130); Calcium 7.8 mg/dL (7.8-10.44); Carbon Dioxide 24 mmol/L (23-31); Chloride 108 mmol/L (98-107); Estimated GFR-MDRD 11; Glucose 105 mg/dL (83-110); Potassium 3.8 mmol/L (3.5-5.1); Sodium 144 mmol/L (136-145)
[2017-07-24 04:29] LABS: Band 17 % (5-11); Hemoglobin 10.8 g/dL (14.0-18.0); Lymphocytes 3 % (21-51); MDiff Complete? YES; Mean Corpuscular HGB CONC 33.3 g/dL (32.0-36.0); Mean Corpuscular Hemoglobin 29.3 pg (27.0-31.0); Mean Corpuscular Volume 87.8 fl (80.0-94.0); Mean Platelet Volume 10.2 fL (7.4-10.4); Monocytes 3 % (0-10); Neutrophil 77 % (42-75); PLT Morphology Comment Appears Decreased; Platelet Count 43 thou/uL (130-400); RBC Distribution Width 14.6 % (11.5-14.5); White Blood Cell (WBC) Count 16.8 thou/uL (4.8-10.8)
[2017-07-24] MEDS: Acetaminophen 325 MG TAB PO PRN ×3 (05:16→22:25)
[2017-07-24] MEDS: Hydrocortisone Sod Succ/PF 100 mg/2 ml Vial IVP SCH (05:19)
[2017-07-24] MEDS: Sodium Chloride 0.45% 1,000 ML IV SCH ×2 (05:24→16:01)
--- NOTE | 2017-07-24 08:06 | PRG ---
DATE OF SERVICE: 07/24/2017 SUBJECTIVE: The patient is still having problems with low blood pressure. PHYSICAL EXAMINATION: VITAL SIGNS: His temperature is 98.6, pulse 71, pressure 116/56, requiring Levophed at 3 mcg per min aurea. Intake for 24 hours is 2051, output 1615. HEENT: Unremarkable. NECK: No JVD. CHEST: Clear. ABDOMEN: Slightly distended. EXTREMITIES: No clubbing, cyanosis, but trace edema. LABORATORY DATA: Sodium 144, potassium 3.8, chloride 108, CO2 24, BUN 67, creatinine 4.9, glucose 10 5, calcium 7.8. White blood cell count 16.8, hematocrit 32.5, platelet count 43. ASSESSMENT: 1. Refractory hypotension status post abdominal aortic aneurysm repair. 2. Renal failure. 3. Status post respiratory failure. PLAN: 1. Add midodrine to see if that will help with blood pressure. 2. Decrease steroid dose. 3. May need Nephrology input.
--- NOTE | 2017-07-24 08:47 | EKG ---
Test Reason : POST-OP Blood Pressure : / mmHG Vent. Rate : 078 BPM Atrial Rate : 105 BPM P-R Int : 000 ms QRS Dur : 136 ms QT Int : 474 ms P-R-T Axes : 000 -71 107 degrees QTc Int : 540 ms Atrial fibrillation Left axis deviation Right bundle branch block Possible Lateral infarct , age undetermined ST-T wave changes suggesting ischemia Abnormal ECG Confirmed by ARNAV BRANDT MD ([id number]) on 07/24/2017 8:47:15 AM Referred By: YARI Confirmed By:ARNAV BRANDT MD
[2017-07-24] MEDS: Pantoprazole 40 MG VIAL IVP SCH (09:01)
[2017-07-24] MEDS: predniSONE 5 MG TAB PO SCH (09:01)
[2017-07-24] MEDS: Midodrine HCl 5 MG TAB PO SCH ×3 (09:31→21:07)
[2017-07-24] MEDS: Nystatin Powder 15 GM BOT TOP PRN (09:33)
[2017-07-24] MEDS: Chloraseptic Spray 180 ml Bottle PO PRN ×2 (09:33→21:07)
[2017-07-25] MEDS: Acetaminophen 325 MG TAB PO PRN (02:33)
[2017-07-25 07:03] LABS: Hemoglobin 10.7 g/dL (14.0-18.0); Mean Corpuscular HGB CONC 32.9 g/dL (32.0-36.0); Mean Corpuscular Hemoglobin 29.2 pg (27.0-31.0); Mean Corpuscular Volume 88.9 fl (80.0-94.0); Mean Platelet Volume 9.8 fL (7.4-10.4); Platelet Count 42 thou/uL (130-400); RBC Distribution Width 14.9 % (11.5-14.5); Red Blood Cell (RBC) Count 3.67 mill/uL (4.70-6.10); White Blood Cell (WBC) Count 16.3 thou/uL (4.8-10.8)
[2017-07-25 07:21] LABS: Band 12 % (5-11); Lymphocytes 8 % (21-51); MDiff Complete? YES; Metamyelocyte 1 % (0-0); Monocytes 7 % (0-10); Neutrophil 71 % (42-75); Nucleated RBC 1 % (0); PLT Morphology Comment Appears Decreased; Polychromasia SLIGHT = 2-3 cells (100X) (0-2/hpf); Reactive Lymphocytes 1 % (0-10)
[2017-07-25 07:25] LABS: Anion Gap 16 mmol/L (10-20); BUN (Urea Nitrogen) 77 mg/dL (8.4-25.7); Calc. Creatinine Clearance 12 mL/min (70-130); Calcium 7.9 mg/dL (7.8-10.44); Carbon Dioxide 23 mmol/L (23-31); Chloride 106 mmol/L (98-107); Estimated GFR-MDRD 11; Glucose 73 mg/dL (83-110); Potassium 3.6 mmol/L (3.5-5.1); Sodium 141 mmol/L (136-145)
[2017-07-25] MEDS: Hydrocodone-Acetamin 15 ML UDCUP PO PRN ×2 (08:29→20:56)
[2017-07-25] MEDS ORDERED: predniSONE 5 MG TAB PO SCH (08:30)
[2017-07-25] MEDS: Midodrine HCl 5 MG TAB PO SCH ×3 (08:40→20:50)
--- NOTE | 2017-07-25 08:46 | PRG ---
DATE OF SERVICE: 07/25/2017 This is an 87-year-old gentleman. He appears weak, less short of breath. PHYSICAL EXAMINATION: VITAL SIGNS: Sats 90% on room air, pulse 80, blood pressure 118/54, respiration 18. His I's and O's have been somewhat better with 2051 in, 1615 out. EXTREMITIES: No edema. CHEST: Chest revealed decreased breath sounds, minimal rhonchi. CARDIAC: Normal S1-S2. No gallops. ABDOMEN: Soft, no mass. LABORATORY: White count 16,000, H&H 10 and 32, platelet count is low 42, 71 segs, 12 bands. Electro lytes are normal. Creatinine is 5, BUN 77. All cultures are so far negative. IMPRESSION: 1. Status post abdominal aortic aneurysm repair. 2. Renal failure. 3. Severe deconditioning. 4. Hypertension. 5. Renal failure. 6. Advanced age. PLAN: PT and supportive care. Hopefully, his renal function will slowly improve. We will follow wh ile in the ICU.
--- NOTE | 2017-07-25 11:43 | PQF ---
CLINICAL DOCUMENTATION IMPROVEMENT CLARIFICATION FORM: ICD-10 Updated PLEASE DO AN ADDENDUM TO THE PROGRESS NOTE WITH ANY DOCUMENTATION UPDATES OR ADDITIONS AND CARRY THROUGH TO DC SUMMARY. THANK YOU. DATE: 07/25 ATTN: DR. NOBLE Please exercise your independent, professional judgment in responding to the clarification form. Clinical indicators are provided on the bottom of this form for your review Please check appropriate box(s): [ x] Acute blood loss anemia [ ] Post-op anemia related to acute blood loss [ ] Other diagnosis [ ] Unable to determine For continuity of documentation, please document condition throughout progress notes and discharge summary. Thank You. CLINICAL INDICATORS - SIGNS / SYMPTOMS / LABS PHYSICIAN PN DATED 07/22: BLOOD LOSS ANEMIA - WILL TRANSFUSE 2 MORE UNITS PRBC'S H/H: 10.7/32.6 - 7.5/23.0 (07/20, POST-OP); 8.3/25.0 (07/22) RISK FACTORS: 07/20 - JUXTARENAL AAA, B ALEAH ANEURYSMS, L SPOUTER ANEURYSM (EBL 2000 ML) 07/20 - ABDOMINAL RE-EXPLORATION & CONTROL OF BLEEDING (EBL 1000 ML) TREATMENTS: TRANSFUSION OF PRBC'S (7U TOTAL, 07-20 & ), FFP (4U TOTAL, 07/20), PLATELETS ( 2U TOTAL, 07/20 & ) IVF (04/05 NS 07/21 - PRESENT; NS 07/21) THANK YOU! Kathe (This form is maintained as a part of the permanent medical record) 2014 [employer]. All Rights Reserved Kathe Lawton RN, BSN [email or web address] Office: [phone] [facility]
--- NOTE | 2017-07-25 12:00 | PQF ---
CLINICAL DOCUMENTATION IMPROVEMENT CLARIFICATION FORM: ICD-10 Updated PLEASE DO AN ADDENDUM TO THE PROGRESS NOTE WITH ANY DOCUMENTATION UPDATES OR ADDITIONS AND CARRY THROUGH TO DC SUMMARY. THANK YOU. DATE: 07/25 ATTN: DR. Edy GREENBERG Please exercise your independent, professional judgment in responding to the clarification form. Clinical indicators are provided on the bottom of this form for your review Please check appropriate box(s): [ ] Hypovolemic Shock [ x ] Hemorrhagic Shock due to surgery: [ ] Cardiogenic Shock [ ] Other diagnosis [ ] Unable to determine For continuity of documentation, please document condition throughout progress notes and discharge summary. Thank You. CLINICAL INDICATORS - SIGNS / SYMPTOMS / LABS PHYSICIAN PN 07/20: PT RETURNED TO OR FOR HYPOTENSION & ACIDOSIS IN SPITE OF VOLUME & PRESSORS PHYSICIAN PN 07/21 - MOSTLY PRESSOR DEPENDENT BUT HB STABLE & ACIDOSIS HAS NOW CLEARED PHYSICIAN PN 07/22 - WILL TRANSFUSE 2 MORE UNITS PRBC'S WHICH HOPEFULLY WILL FACILITATE WEANING LEVOPHED PHYSICIAN PN 07/23 - CONTINUE TO WEAN LEVOPHED PHYSICIAN PN 07/25 - LEVOPHED OFF SINCE 10 A.M. 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 Kathe (This form is maintained as a part of the permanent medical record) 2014 [employer]. All Rights Reserved Kathe Lawton, RN, BSN [email or web address] Office: [phone] [facility]ALL[facility]oyd
[2017-07-25] MEDS: predniSONE 5 MG TAB PO SCH (13:11)
[2017-07-25] MEDS: Sodium Chloride 0.45% 1,000 ML IV SCH (16:19)
[2017-07-25] MEDS: Atorvastatin Calcium 20 MG TAB PO SCH (20:50)
[2017-07-26] MEDS: Sodium Chloride 0.45% 1,000 ML IV SCH ×2 (01:39→08:03)
[2017-07-26 05:29] LABS: #Basophils 0.1 thou/uL (0.0-0.2); #Eosinphils 0.2 thou/uL (0.0-0.7); #Neutrophils 12.5 thou/uL (1.40-6.50); %Basophils 0.5 % (0.0-1.0); %Eosinophils 1.4 % (0.0-10.0); %Lymphocytes 6.8 % (21.0-51.0); %Monocytes 6.8 % (0.0-10.0); %Neutrophils 84.6 % (42.0-75.0); Hemoglobin 11.2 g/dL (14.0-18.0); Mean Corpuscular HGB CONC 32.6 g/dL (32.0-36.0); Mean Corpuscular Hemoglobin 29.4 pg (27.0-31.0); Mean Corpuscular Volume 90.3 fl (80.0-94.0); Mean Platelet Volume 9.9 fL (7.4-10.4); Platelet Count 42 thou/uL (130-400); RBC Distribution Width 15.2 % (11.5-14.5); Red Blood Cell (RBC) Count 3.81 mill/uL (4.70-6.10); White Blood Cell (WBC) Count 14.7 thou/uL (4.8-10.8)
[2017-07-26 05:32] LABS: Anion Gap 15 mmol/L (10-20); BUN (Urea Nitrogen) 76 mg/dL (8.4-25.7); Calc. Creatinine Clearance 14 mL/min (70-130); Calcium 7.5 mg/dL (7.8-10.44); Carbon Dioxide 22 mmol/L (23-31); Chloride 106 mmol/L (98-107); Estimated GFR-MDRD 11; Glucose 95 mg/dL (83-110); Potassium 3.7 mmol/L (3.5-5.1); Sodium 139 mmol/L (136-145)
[2017-07-26] MEDS: Hydrocodone-Acetamin 15 ML UDCUP PO PRN ×2 (06:15→21:36)
[2017-07-26] MEDS ORDERED: predniSONE 5 MG TAB PO SCH (08:00)
[2017-07-26] MEDS: Midodrine HCl 5 MG TAB PO SCH ×2 (08:42→21:35)
--- NOTE | 2017-07-26 09:36 | PRG ---
DATE OF SERVICE: 07/26/2017 This morning he is weak. PHYSICAL EXAMINATION: VITAL SIGNS: Sats are 95% on 2 liters, temperature is 97, pulse 59, blood pressure 138/76 improved. His I's and O's are 2399 in and 1340 out. CHEST: Chest reveals decreased breath sounds, no wheezing. CARDIAC: Normal S1, S2. ABDOMEN: Soft, no masses. LABORATORY: White count 14,000, H&H 11 and 34, platelet count is 42, creatinine is 7.6, BUN is 48, somewhat better. IMPRESSION: 1. Renal failure. 2. Status post abdominal aortic valve repair. 3. Hypertension. 4. Severe deconditioning. PLAN: Continue PT and will taper his prednisone and probably discontinue. Eventually rehab. I will follow.
[2017-07-26] MEDS: Atorvastatin Calcium 20 MG TAB PO SCH (21:35)
[2017-07-27] MEDS: Hydrocodone-Acetamin 15 ML UDCUP PO PRN ×4 (03:55→23:20)
[2017-07-27 06:15] LABS: Anion Gap 14 mmol/L (10-20); BUN (Urea Nitrogen) 75 mg/dL (8.4-25.7); Calc. Creatinine Clearance 14 mL/min (70-130); Carbon Dioxide 24 mmol/L (23-31); Chloride 105 mmol/L (98-107); Estimated GFR-MDRD 12; Glucose 88 mg/dL (83-110); Potassium 3.6 mmol/L (3.5-5.1); Sodium 139 mmol/L (136-145)
[2017-07-27 06:18] LABS: #Eosinphils 0.6 thou/uL (0.0-0.7); #Lymphocytes 0.9 thou/uL (1.20-3.40); #Monocytes 0.9 thou/uL (0.11-0.59); #Neutrophils 7.9 thou/uL (1.40-6.50); %Basophils 0.3 % (0.0-1.0); %Eosinophils 5.7 % (0.0-10.0); %Lymphocytes 8.4 % (21.0-51.0); %Monocytes 8.5 % (0.0-10.0); %Neutrophils 77.1 % (42.0-75.0); Mean Corpuscular HGB CONC 32.6 g/dL (32.0-36.0); Mean Corpuscular Hemoglobin 29.1 pg (27.0-31.0); Mean Corpuscular Volume 89.4 fl (80.0-94.0); Mean Platelet Volume 9.3 fL (7.4-10.4); Platelet Count 54 thou/uL (130-400); RBC Distribution Width 15.3 % (11.5-14.5); Red Blood Cell (RBC) Count 4.11 mill/uL (4.70-6.10); White Blood Cell (WBC) Count 10.3 thou/uL (4.8-10.8)
[2017-07-27] MEDS ORDERED: predniSONE 5 MG TAB PO SCH (08:00)
[2017-07-27] MEDS: Midodrine HCl 5 MG TAB PO SCH (09:17)
[2017-07-27] MEDS: Chloraseptic Spray 180 ml Bottle PO PRN ×2 (09:29→15:25)
[2017-07-27] MEDS: Nystatin Powder 15 GM BOT TOP PRN (09:30)
--- NOTE | 2017-07-27 13:02 | PRG ---
DATE OF SERVICE: 07/27/2017 SUBJECTIVE: This morning, he is awake, less short of breath. OBJECTIVE: VITAL SIGNS: Sats are 100% on 1 liter, respiration 20, temperature 97, blood pressure is 144/70. CHEST: Reveals decreased breath sounds without any wheezing. CARDIAC: Normal S1, S2. No gallops. ABDOMEN: Soft. EXTREMITIES: No edema. GENITOURINARY: He has got markedly swollen scrotum, probably from dependent edema. LABORATORY DATA: His creatinine is stable at 4.6, BUN 75. White count 10,000, H&H is 10 and 36. IMPRESSION: 1. Status post abdominal aortic aneurysm repair with subsequent hypertension. 2. Acute on chronic renal failure. 3. Severe deconditioning. 4. Thrombocytopenia. 5. Scrotal swelling. PLAN: Discontinue prednisone. Discontinue midodrine. PT and supportive care. Eventually placement and rehabilitation. We will follow.
[2017-07-27] MEDS: Atorvastatin Calcium 20 MG TAB PO SCH (20:24)
[2017-07-28] MEDS ORDERED: guaiFENesin/Codeine Phosphate 200 mg/20 mg 10 ml UD Cup PO SCH (02:00)
[2017-07-28] MEDS: Hydrocodone-Acetamin 15 ML UDCUP PO PRN ×2 (05:29→20:59)
[2017-07-28 07:33] LABS: Hemoglobin 12.3 g/dL (14.0-18.0); Mean Corpuscular HGB CONC 32.3 g/dL (32.0-36.0); Mean Corpuscular Hemoglobin 28.8 pg (27.0-31.0); Mean Corpuscular Volume 89.2 fl (80.0-94.0); Mean Platelet Volume 8.9 fL (7.4-10.4); Platelet Count 85 thou/uL (130-400); RBC Distribution Width 15.5 % (11.5-14.5); Red Blood Cell (RBC) Count 4.28 mill/uL (4.70-6.10); White Blood Cell (WBC) Count 10.7 thou/uL (4.8-10.8)
[2017-07-28 07:49] LABS: Anion Gap 12 mmol/L (10-20); BUN (Urea Nitrogen) 71 mg/dL (8.4-25.7); Calc. Creatinine Clearance 16 mL/min (70-130); Calcium 8.2 mg/dL (7.8-10.44); Carbon Dioxide 24 mmol/L (23-31); Chloride 107 mmol/L (98-107); Estimated GFR-MDRD 13; Glucose 105 mg/dL (83-110); Potassium 3.5 mmol/L (3.5-5.1); Sodium 139 mmol/L (136-145)
[2017-07-28 07:51] LABS: Band 15 % (5-11); Burr Cells SLIGHT = 2-5 cells (100X) (0-1/hpf); Eosinophils 12 % (0-10); Lymphocytes 7 % (21-51); MDiff Complete? YES; Monocytes 5 % (0-10); Neutrophil 61 % (42-75); Nucleated RBC 1 % (0); PLT Morphology Comment Appears Decreased; Toxic Granulation SLIGHT
--- NOTE | 2017-07-28 10:13 | PRG ---
DATE OF SERVICE: 07/28/2017 He is still nauseated, but denies any shortness of breath. PHYSICAL EXAMINATION: VITAL SIGNS: Sats 90% on room air, temperature 98, pulse 84, respirations rate 18, blood pressure 12 0/68. CHEST: Chest revealed decreased breath sounds, minimal rhonchi. CARDIAC: Normal S1, S2, no gallop. ABDOMEN: Distended, but soft. EXTREMITIES: Trace edema. : Scrotal swelling. I's and O's are 1200 in, 1350 out. LABORATORY: Lab shows slight improvement in his renal function. Creatinine 4, BUN 71, white count i s 12,000. IMPRESSION: 1. Persistent nausea, vomiting. 2. Status post abdominal aortic aneurysm repair. 3. Renal failure, acute on chronic. 4. Severe deconditioning. PLAN: Concerned why he has persistent nausea. He has not had much intake, been off for several days . Continue PT, minimize medication that could make him nauseated. I will follow.
[2017-07-28 10:42] LABS: Bilirubin Negative (Negative); Blood, Urine Large (Negative); Clarity CLOUDY (Clear); Glucose, Urine (Dipstick) Negative (Negative); Leukocyte Small (Negative); Nitrite Negative (Negative); Protein, Urine (Dipstick) 100 mg/dL (Neg-Trace); Specific Gravity, Urine 1.021 (1.002-1.036)
[2017-07-28 10:44] LABS: Hyaline Casts/LPF 0-3 HYALINE CAST LPF (0-3 Hyaline); Pathc Cast-AUWi Flag 0.14 (0-2.49); Squamous Epithelial 0-3 HPF (0-3)
[2017-07-28 10:45] LABS: Yeast-AUWi Flag 70.5 (0-25.0)
[2017-07-28 10:53] LABS: Bacteria/HPF 2+ HPF (None Seen); RBC/HPF 0-3 HPF (0-3); Yeast-All Forms None Seen HPF (None Seen)
--- NOTE | 2017-07-28 11:50 | RAD ---
CHEST ONE VIEW: HISTORY: Cough. COMPARISON: 07/22/2017 FINDINGS: Continued elevation of the right hemidiaphragm. Central venous catheter tip sits at the inferior SVC . There appears to be a layering left effusion. Left retrocardiac opacity is present. No pneumothorax. Cardiac pacer is present. IMPRESSION: Similar examination of the chest. No significant change. POS: [facility]
[2017-07-28] MEDS: Atorvastatin Calcium 20 MG TAB PO SCH (20:46)
[2017-07-28] MEDS: Metoclopramide HCl 10 MG/2 ML VIAL IVP SCH (20:47)
[2017-07-29] MEDS: Hydrocodone-Acetamin 15 ML UDCUP PO PRN ×3 (05:02→21:08)
[2017-07-29] MEDS: AMOXicillin 250 MG CAP PO SCH ×3 (08:51→21:04)
[2017-07-29] MEDS: Metoclopramide HCl 10 MG/2 ML VIAL IVP SCH ×2 (08:51→21:04)
--- NOTE | 2017-07-29 09:32 | PRG ---
DATE OF SERVICE: 07/29/2017 This morning he is awake, responsive. He is less nauseated. PHYSICAL EXAMINATION: VITAL SIGNS: Sats are 97% on room air, respiration 16, temperature 97, blood pressure is 90/51. CHEST: Chest reveals decreased breath sounds, no wheezing. CARDIAC: Normal S1, S2, no gallops. ABDOMEN: Soft, no masses. IMPRESSION: 1. Status post abdominal aortic aneurysm repair with increasing hypertension and renal failure. 2. Severe deconditioning. 3. Scrotal swelling. 4. Renal failure. PLAN: He started scheduled Reglan. Apparently, he is somewhat better with less nausea. He is able to tolerate his Ensure. Otherwise continue PT and supportive care. Continue to follow up on his nathaniel al function. I will follow.
[2017-07-29] MEDS: Atorvastatin Calcium 20 MG TAB PO SCH (21:05)
[2017-07-30] MEDS: Hydrocodone-Acetamin 15 ML UDCUP PO PRN ×3 (04:36→21:13)
[2017-07-30 05:20] LABS: Band 4 % (5-11); Eosinophils 3 % (0-10); Lymphocytes 8 % (21-51); MDiff Complete? YES; Mean Corpuscular HGB CONC 32.1 g/dL (32.0-36.0); Mean Corpuscular Hemoglobin 29.6 pg (27.0-31.0); Mean Corpuscular Volume 92.1 fl (80.0-94.0); Mean Platelet Volume 8.3 fL (7.4-10.4); Monocytes 5 % (0-10); Neutrophil 80 % (42-75); Nucleated RBC 1 % (0); PLT Morphology Comment Appears Decreased; Platelet Count 97 thou/uL (130-400); RBC Distribution Width 16.5 % (11.5-14.5); White Blood Cell (WBC) Count 14.8 thou/uL (4.8-10.8)
[2017-07-30 05:33] LABS: Anion Gap 16 mmol/L (10-20); BUN (Urea Nitrogen) 66 mg/dL (8.4-25.7); Calc. Creatinine Clearance 17 mL/min (70-130); Calcium 8.5 mg/dL (7.8-10.44); Carbon Dioxide 18 mmol/L (23-31); Chloride 107 mmol/L (98-107); Estimated GFR-MDRD 14; Glucose 90 mg/dL (83-110); Potassium 3.6 mmol/L (3.5-5.1); Sodium 137 mmol/L (136-145)
[2017-07-30] MEDS: Metoclopramide HCl 10 MG/2 ML VIAL IVP SCH ×2 (09:15→21:15)
[2017-07-30] MEDS: AMOXicillin 250 MG CAP PO SCH ×3 (09:15→21:14)
[2017-07-30] MEDS ORDERED: Furosemide 40 MG/4 ML VIAL SLOW IVP SCH (12:00)
[2017-07-30] MEDS ORDERED: predniSONE 20 MG TAB PO SCH (12:00)
--- NOTE | 2017-07-30 13:40 | PRG ---
DATE OF SERVICE: 07/30/2017 SERVICE: Pulmonary Medicine. INTERVAL HISTORY: The patient is doing fine from a respiratory standpoint. He feels that he is stil l weak. He is having heaviness over his chest. Otherwise, there has been no interval change to his condition. He indicates that his lower extremity swelling is a little bit worse today. He is contin uing to cough and bring up a little bit of phlegm. That being said, there is not much color to it. PHYSICAL EXAMINATION: VITAL SIGNS: Afebrile, pulse 61, blood pressure 98/56, respirations 12, and saturation 95% on room a ir. GENERAL: The patient is awake, alert, in no apparent distress. LUNGS: Decent air entry bilaterally with no prolonged expiratory phase, wheezing, rhonchi. Dependen t crackles are present bilaterally. Minimal wheezing is present. HEART: Normal rate, regular. ABDOMEN: Soft, nontender, nondistended. Bowel sounds are positive. MUSCULOSKELETAL: No cyanosis or clubbing. There is trace to 1+ pitting in the bilateral lower extre mities. GENITOURINARY: Hackett catheter in place. NEUROLOGIC: Grossly nonfocal. LABORATORY DATA: WBC 14.8, hemoglobin 13.0, platelets 97,000. These are slowed up trend. His neutr ophil count is 80%. Urine cultures negative to date. IMAGING: Chest x-ray demonstrates high right-sided diaphragm. Left-sided pleural effusion is presen t. There is a subclavian central venous catheter terminates in good position. Single lead pacemaker is in place. ASSESSMENT: 1. Acute hypoxic respiratory failure. 2. Acute bronchitis. 3. Volume overload. 4. Acute kidney injury, improving. 5. Abdominal aortic aneurysm, status post repair, postop day #10. PLAN: I will start diuresing the patient. We will give him a brief course of steroids. I will cont inue the nebulized medications and antibiotics. Pulmonary Critical Care will continue to follow leslye prado for the time being. We will continue working on mobilizing the patient to the best of our ability.
[2017-07-30] MEDS: Atorvastatin Calcium 20 MG TAB PO SCH (21:15)
[2017-07-30] MEDS: Bacitracin Zinc 1 Packet TOP SCH (21:15)
[2017-07-31] MEDS: Hydrocodone-Acetamin 15 ML UDCUP PO PRN ×3 (05:30→22:05)
[2017-07-31] MEDS: Furosemide 40 MG/4 ML VIAL SLOW IVP SCH (08:27)
[2017-07-31] MEDS: AMOXicillin 250 MG CAP PO SCH ×3 (08:27→20:20)
[2017-07-31] MEDS: Bacitracin Zinc 1 Packet TOP SCH ×2 (08:27→20:20)
[2017-07-31] MEDS: predniSONE 20 MG TAB PO SCH (08:27)
[2017-07-31] MEDS: Metoclopramide HCl 10 MG/2 ML VIAL IVP SCH ×2 (08:36→20:20)
[2017-07-31] MEDS: Ondansetron ODT 4 MG TAB PO PRN (10:14)
[2017-07-31 12:09] LABS: Anion Gap 18 mmol/L (10-20); BUN (Urea Nitrogen) 70 mg/dL (8.4-25.7); Calc. Creatinine Clearance 18 mL/min (70-130); Calcium 8.4 mg/dL (7.8-10.44); Carbon Dioxide 18 mmol/L (23-31); Chloride 108 mmol/L (98-107); Estimated GFR-MDRD 15; Glucose 71 mg/dL (83-110); Magnesium 1.6 mg/dL (1.6-2.6); Phosphorus 2.9 mg/dL (2.3-4.7); Potassium 3.8 mmol/L (3.5-5.1); Sodium 140 mmol/L (136-145)
--- NOTE | 2017-07-31 19:21 | PRG ---
DATE OF SERVICE: 07/31/2017 SERVICE: Pulmonary Medicine. INTERVAL HISTORY: The patient is doing fine from cardiovascular and respiratory standpoint. He is b reathing comfortably on room air. He continues to have persistent lower extremity swelling. That be ing said, he has better color. He indicates that he sat up in a chair for 3 hours today and felt goo d doing it. PHYSICAL EXAMINATION: VITAL SIGNS: Afebrile, pulse 95, blood pressure 101/58, respirations 20, saturation 98% on room air. GENERAL: The patient is awake, alert, no apparent distress. LUNGS: Excellent air entry. There is a slightly prolonged expiratory phase. No wheezing, rhonchi o r crackles are appreciated. HEART: Normal rate, regular. ABDOMEN: Soft, nontender, and nondistended. Bowel sounds are positive. MUSCULOSKELETAL: No cyanosis or clubbing. There is trace to 1+ pitting in the bilateral lower extre mities. NEUROLOGIC: Grossly nonfocal. LABORATORY DATA: Magnesium and phosphorus fall within the normal limits. Potassium 3.8, creatinine 3.84 and roughly stable. Basic metabolic profile is otherwise unremarkable. ASSESSMENT: 1. Acute hypoxic respiratory failure, resolved. 2. Acute bronchitis. 3. Volume overload. 4. Acute kidney injury, slowly improving. 5. Abdominal aortic aneurysm, status post repair, postop day #11. PLAN: We will give him a touch of free water over the next 24 hours. This is to prevent him develop ing hypernatremia. We will continue to diurese him gently through time. I will replace his magnesiu m. Repeat electrolytes will be done in the morning. We will do our best to mobilize him as much as he tolerates.
[2017-07-31] MEDS ORDERED: Magnesium 2 GM/NS 0.9% 100 ML 2 GM in Premix Bag 1 BAG IVPB SCH (19:30)
[2017-07-31] MEDS: Dextrose 5% in Water 1,000 ML IV SCH (20:19)
[2017-07-31] MEDS: Atorvastatin Calcium 20 MG TAB PO SCH (20:20)
[2017-08-01 06:12] LABS: Chloride 107 mmol/L (98-107); Potassium 4.8 mmol/L (3.5-5.1); Sodium 139 mmol/L (136-145)
[2017-08-01 06:13] LABS: Calcium 8.2 mg/dL (7.8-10.44); Glucose 98 mg/dL (83-110)
[2017-08-01 06:15] LABS: Anion Gap 15 mmol/L (10-20); Carbon Dioxide 22 mmol/L (23-31)
[2017-08-01 06:17] LABS: BUN (Urea Nitrogen) 72 mg/dL (8.4-25.7); Calc. Creatinine Clearance 17 mL/min (70-130); Estimated GFR-MDRD 14
[2017-08-01] MEDS: Furosemide 40 MG/4 ML VIAL SLOW IVP SCH (08:23)
[2017-08-01] MEDS: AMOXicillin 250 MG CAP PO SCH (08:23)
[2017-08-01] MEDS: Metoclopramide HCl 10 MG/2 ML VIAL IVP SCH (08:23)
[2017-08-01] MEDS: Bacitracin Zinc 1 Packet TOP SCH ×2 (08:23→19:17)
[2017-08-01] MEDS: predniSONE 20 MG TAB PO SCH (08:23)
[2017-08-01] MEDS ORDERED: Guaifenesin DM 100-10/5 ML UDCUP PO PRN (09:45)
--- NOTE | 2017-08-01 10:15 | PRG ---
DATE OF SERVICE: 08/01/2017 This morning he is awake, alert, responsive. PHYSICAL EXAMINATION: VITAL SIGNS: Blood pressure is 140/65, pulse rate is 69, sats 98% on room air. He has got a cough w hich is nonproductive. CHEST: Chest reveals decreased breath sounds, no wheezing. CARDIAC: Normal S1, S2. No gallops. ABDOMEN: Soft, no masses. LABORATORY: Creatinine 3.97. BUN is 72. Sodium 137. IMPRESSION: 1. Acute chronic renal failure secondary to hypertension. 2. Bronchitis. 3. Status post abdominal aortic aneurysm repair. 4. Severe deconditioning. PLAN: I switched him over to Augmentin, cough syrup as needed. Discontinue diuretics at this stage his renal function has worsened. I will discontinue his Reglan. I will follow. Eventually placement.
[2017-08-01] MEDS: Hydrocodone-Acetamin 15 ML UDCUP PO PRN ×2 (10:57→19:17)
[2017-08-01 14:48] LABS: Actual Bicarbonate (HCO3a) 17.6 mEq/L (22-26); Base Excess (BEa) -5.5 mEq/L (0 (+/-) 2.5); CO2 Tension 28.9 mmHg (35.0-45.0); O2 Tension (PaO2) 487.1 mmHg (80.0-100.0)
[2017-08-01 14:49] LABS: Analyzer IN Cardio OR
[2017-08-01 14:49] LABS: Analyzer IN Cardio OR; Calcium, Ionized 1.2 mmol/L (1.12-1.30); Hematocrit-ABG 43.7 % (42.0-52.0); Hemoglobin (Hb) 15.5 g/dL (14.0-18.0); Puncture Site ALINE
[2017-08-01 14:52] LABS: Actual Bicarbonate (HCO3v) 16 mEq/L (22-26); pH (venous) 7.25 (7.35-7.45)
[2017-08-01 14:53] LABS: Base Excess -10.3 mEq/L (0 (+/- 2.5)); Calcium, Ionized 1.16 mmol/L (1.16-1.32); Chloride (ABG LAB) 108 mmol/L (98-106); Hematocrit-VBG 39.4 % (37-51); Hemoglobin (Hb) 13.8 g/dL (12.6-17.4); Potassium - ABG Lab 4.1 mmol/L (3.70-5.30); Sodium 140.3 mmol/L (133-146)
[2017-08-01 14:53] LABS: pH, Arterial 7.33 (7.35-7.45)
[2017-08-01 14:54] LABS: Actual Bicarbonate (HCO3a) 18.7 mEq/L (22-26); Analyzer IN Cardio OR; Base Excess (BEa) -6.6 mEq/L (0 (+/-) 2.5); CO2 Tension 36.4 mmHg (35.0-45.0); Hemoglobin (Hb) 11.7 g/dL (14.0-18.0); O2 Tension (PaO2) 457.6 mmHg (80.0-100.0); Puncture Site ALINE
[2017-08-01 14:55] LABS: pH, Arterial 7.03 (7.35-7.45)
[2017-08-01 14:56] LABS: Actual Bicarbonate (HCO3a) 10.6 mEq/L (22-26); Analyzer IN Cardio OR; CO2 Tension 40.6 mmHg (35.0-45.0); Calcium, Ionized 1.1 mmol/L (1.12-1.30); Hematocrit-ABG 21.1 % (42.0-52.0); Hemoglobin (Hb) 8.5 g/dL (14.0-18.0); O2 Tension (PaO2) 418.2 mmHg (80.0-100.0); Puncture Site ALINE
[2017-08-01 14:57] LABS: Actual Bicarbonate (HCO3a) 13.8 mEq/L (22-26); Base Excess (BEa) -13.7 mEq/L (0 (+/-) 2.5); CO2 Tension 38.9 mmHg (35.0-45.0); Hematocrit-ABG 19.8 % (42.0-52.0); Hemoglobin (Hb) 8.5 g/dL (14.0-18.0); O2 Tension (PaO2) 429.8 mmHg (80.0-100.0); pH, Arterial 7.17 (7.35-7.45)
[2017-08-01 14:58] LABS: Analyzer IN Cardio OR; Calcium, Ionized 1.1 mmol/L (1.12-1.30); Puncture Site ALINE
[2017-08-01 15:00] LABS: CO2 Tension 40.9 mmHg (35.0-45.0)
[2017-08-01 15:01] LABS: Actual Bicarbonate (HCO3a) 19.6 mEq/L (22-26); Base Excess (BEa) -6.3 mEq/L (0 (+/-) 2.5); Hematocrit-ABG 21.5 % (42.0-52.0); Hemoglobin (Hb) 9.6 g/dL (14.0-18.0); O2 Tension (PaO2) 444.5 mmHg (80.0-100.0)
[2017-08-01 15:02] LABS: Actual Bicarbonate (HCO3a) 18.1 mEq/L (22-26); Base Excess (BEa) -8.1 mEq/L (0 (+/-) 2.5); CO2 Tension 40.1 mmHg (35.0-45.0); Hematocrit-ABG 20.8 % (42.0-52.0); Hemoglobin (Hb) 9.1 g/dL (14.0-18.0); O2 Tension (PaO2) 430.4 mmHg (80.0-100.0); pH, Arterial 7.27 (7.35-7.45)
[2017-08-01 15:02] LABS: Analyzer IN Cardio OR; Calcium, Ionized 1.2 mmol/L (1.12-1.30); Puncture Site ALINE
[2017-08-01 15:03] LABS: Analyzer IN Cardio OR; Puncture Site ALINE
[2017-08-01] MEDS: Dextrose 5% in Water 1,000 ML IV SCH (16:53)
[2017-08-01] MEDS: Atorvastatin Calcium 20 MG TAB PO SCH (19:17)
[2017-08-01] MEDS: Amoxicillin/Potassium Clav 250 MG TAB PO SCH (19:23)
[2017-08-01] MEDS: Ondansetron ODT 4 MG TAB PO PRN (23:28)
[2017-08-02] MEDS: Hydrocodone-Acetamin 15 ML UDCUP PO PRN ×3 (03:53→23:48)
[2017-08-02 06:37] LABS: Anion Gap 18 mmol/L (10-20); BUN (Urea Nitrogen) 80 mg/dL (8.4-25.7); Calc. Creatinine Clearance 19 mL/min (70-130); Calcium 8.2 mg/dL (7.8-10.44); Carbon Dioxide 19 mmol/L (23-31); Chloride 107 mmol/L (98-107); Estimated GFR-MDRD 16; Glucose 91 mg/dL (83-110); Potassium 3.8 mmol/L (3.5-5.1); Sodium 140 mmol/L (136-145)
[2017-08-02] MEDS: Amoxicillin/Potassium Clav 250 MG TAB PO SCH ×2 (10:11→20:08)
[2017-08-02] MEDS: Bacitracin Zinc 1 Packet TOP SCH ×2 (10:12→20:09)
[2017-08-02] MEDS: Lacri-Lube Opth Oint 3.5 GM TUBE EA EYE PRN (10:16)
--- NOTE | 2017-08-02 11:05 | PRG ---
DATE OF SERVICE: 08/02/2017 This morning he is doing quite well, less short of breath, less cough, but no fever or chills. He was walking with the help of physical therapy. His scrotum remains swollen. PHYSICAL EXAMINATION: VITAL SIGNS: His sats are 90% room air, respiration 16, temperature 97, blood pressure 125/60. CHEST: Chest reveals no wheezing or crackles. CARDIAC: Normal S1, S2, no gallops. ABDOMEN: Soft. EXTREMITIES: No edema. IMPRESSION: 1. Marked weakness. 2. Status post abdominal aortic aneurysm repair. 3. Severe decreasing of renal failure. His BUN and creatinine are 80 and 3.63. He remains relatively stable. 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 Slow hydration, avoid diuretics. Avoid nephrotoxic drugs. I will follow.
[2017-08-02] MEDS: Dextrose 5% in Water 1,000 ML IV SCH (17:53)
[2017-08-02] MEDS: Atorvastatin Calcium 20 MG TAB PO SCH (20:09)
--- NOTE | 2017-08-03 02:53 | DIS ---
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 SECONDARY DIAGNOSES: Acute on chronic renal failure and debilitation, secondary diagnoses present, but not specifically addressed. Hypertension and chronic atrial fibrillation. 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 He also has a left common femoral aneurysm early on, his aneurysm seems stable in size, but it has recently been growing. Anatomically, he proved to not be an appropriate candidate for endovascular repair. He had a minimally abnormal nuclear stress test with an excellent stress ejection fraction and after discussing options with him, he opted to proceed with open repair of his aneurysm. This was done using an 18 x 9 mm Hemashield graft with proximal anastomosis at the origin of the renal arteries and the distal anastomoses at the common iliac bifurcations, segment of the 9 mm component of the graft was used to replace the aneurysmal segment of common femoral artery going from common femoral above the aneurysm to the profunda femoris beyond. His blood pressure immediately postop was labile and initially appeared to be continuation of his demonstrated volume dependence that he had had intraoperatively; however, with persistence of acidosis and recurrence of hypotension, he was returned to the operating room few hours postoperatively and he was found to have bleeding coming from the distal anastomoses, most dramatically, the left one with these bleeding points repaired. His hemodynamics dramatically stabilized. His creatinine preoperatively was about 1.6 down from his typical baseline of creatinine around 2 in the day following surgery was 2.3. He was initially somewhat oliguric and had poor response to diuretics. By postop day #3, his urine output was coming up to 50-75 mL an hour and his urine output for the remainder of the hospital stay, typically was in the 1 to 1-1/2 liters a day. His creatinine continued to rise; however, peaking at 5.1 on postoperative day #5, from there began to gradually diminish and on postoperative day #13, it was down to 3.67. He is rather deconditioned but he is gradually beginning to improve his level of activity and caloric intake and he is now being transferred to [facility] in [place]. SAVANAH
[2017-08-03 05:30] LABS: Anion Gap 11 mmol/L (10-20); BUN (Urea Nitrogen) 76 mg/dL (8.4-25.7); Calc. Creatinine Clearance 20 mL/min (70-130); Calcium 8.3 mg/dL (7.8-10.44); Carbon Dioxide 28 mmol/L (23-31); Chloride 103 mmol/L (98-107); Estimated GFR-MDRD 17; Glucose 103 mg/dL (83-110); Potassium 3.4 mmol/L (3.5-5.1); Sodium 139 mmol/L (136-145)
--- NOTE | 2017-08-03 09:00 | PRG ---
DATE OF SERVICE: 08/03/2017 This morning he is weak, has a slight cough. PHYSICAL EXAMINATION: VITAL SIGNS: He is afebrile. Pulse 60, temperature is 97, O2 sats 95% on room air, respiration 16, blood pressure 129/60. I's and O's 1434 in, 1135 out. CHEST: Chest reveals decreased breath sounds, no wheezing. CARDIAC: Normal S1-S2. No gallops. ABDOMEN: Soft, no masses. Creatinine 3.45, baseline was 1.45. IMPRESSION: 1. Status post abdominal aortic aneurysm repair with hypertension. 2. Renal failure, chronic.
[2017-08-03] MEDS: Bacitracin Zinc 1 Packet TOP SCH ×2 (09:55→20:01)
[2017-08-03] MEDS: Amoxicillin/Potassium Clav 250 MG TAB PO SCH ×2 (09:55→20:02)
[2017-08-03] MEDS: Hydrocodone-Acetamin 15 ML UDCUP PO PRN ×2 (12:42→18:04)
[2017-08-03] MEDS: Atorvastatin Calcium 20 MG TAB PO SCH (20:01)
[2017-08-04] MEDS: Hydrocodone-Acetamin 15 ML UDCUP PO PRN (01:23)
--- NOTE | 2017-08-04 09:30 | PRG ---
DATE OF SERVICE: 08/04/2017 This morning he is awake, responsive. We are still trying to find a place for him. PHYSICAL EXAMINATION: VITAL SIGNS: Blood pressure 130/60, pulse is 18, temperature 97, pulse 69. His I's and O's are 1189 in, 950 out. CHEST: He says he has got less cough, less shortness of breath. Sats are 90% room air. No wheezing or crackles. CARDIAC: Normal S1, S2, no gallops. ABDOMEN: Soft. EXTREMITIES: No edema. IMPRESSION: 1. Status post abdominal aortic aneurysm. 2. Bronchitis. 3. Severe deconditioning. 4. Renal failure. PLAN: Await placement. Continue PT, nutrition. I will follow.
[2017-08-04] MEDS: Amoxicillin/Potassium Clav 250 MG TAB PO SCH (09:39)
[2017-08-04] MEDS: Bacitracin Zinc 1 Packet TOP SCH (09:39)
[2017-08-04 14:41] VITALS: BMI 30.4
[2017-08-04 16:32] VITALS: BP 158/75; TEMP 97.7
== END 2017-08-04 17:22 | DRG 270 ==
LOC: SURG A 07-20 05:34 → CCU 07-20 12:27 → 2SW 07-25 10:59 → 2NO 07-25 23:37
PROVIDERS: ADMIT Thoracic Surgery (Cardiothoracic Vascular Surgery); ATTEND Thoracic Surgery (Cardiothoracic Vascular Surgery)
PROC: 04U00JZ Supplement Abdominal Aorta with Synthetic Substitute, Open Approach (ICD-10-PCS; principal; 2017-07-20)
PROC: 04L Lower Arteries, Occlusion (ICD-10-PCS; 2017-07-20)
PROC: 041L0JJ Bypass Left Femoral Artery to Left Femoral Artery with Synthetic Substitute, Open Approach (ICD-10-PCS; 2017-07-20)
PROC: 04L Lower Arteries, Occlusion (ICD-10-PCS; 2017-07-20)
PROC: 30233N1 Transfusion of Nonautologous Red Blood Cells into Peripheral Vein, Percutaneous Approach (ICD-10-PCS; 2017-07-20)
DX: I71.4 Abdominal aortic aneurysm, without rupture (principal); J96.01 Acute respiratory failure with hypoxia; T81.19XA Other postprocedural shock, initial encounter; N17.9 Acute kidney failure, unspecified; I13.0 Hypertensive heart and chronic kidney disease with heart failure and stage 1 through stage 4 chronic kidney disease, or unspecified chronic kidney disease; D62 Acute posthemorrhagic anemia; E87.2 Acidosis; N18.9 Chronic kidney disease, unspecified; R53.1 Weakness; J20.9 Acute bronchitis, unspecified; E87.70 Fluid overload, unspecified; N50.89 Other specified disorders of the male genital organs; R11.2 Nausea with vomiting, unspecified; D69.6 Thrombocytopenia, unspecified; I95.9 Hypotension, unspecified; I50.9 Heart failure, unspecified; I48.2 Chronic atrial fibrillation; Z95.0 Presence of cardiac pacemaker; Z79.82 Long term (current) use of aspirin; Z79.899 Other long term (current) drug therapy; Y83.8 Other surgical procedures as the cause of abnormal reaction of the patient, or of later complication, without mention of misadventure at the time of the procedure
CPT/HCPCS: 36415; 36416; 36430; 71045; 71046; 80048; 81001; 82533; 82805; 83735; 83880; 84100; 84443; 85007; 85025; 85027; 85610; 85730; 86850; 86900; 86901; 87086; 93005; 93010; 93306; 94002; 94003; 94640; A4216; A4306; C9113; G8978-GP-CK; G8978-GP-CL; G8979-GP-CI; G8979-GP-CK; J0131; J0360; J0692; J1100; J1265; J1642; J1644; J1720; J1940; J2001; J2150; J2250; J2405; J2704; J2720; J2765; J2795; J3010; J3475; J7050; J7506; J7620; P9016; P9035; P9045; P9047; P9059; Q0162

== ENCOUNTER 2017-07-19 15:34 | Outpatient (CLI) | payer MEDICARE, OTHER ==
[2017-07-19 16:35] LABS: Hemoglobin 17.1 g/dL (14.0-18.0); Mean Corpuscular HGB CONC 31.9 g/dL (32.0-36.0); Mean Corpuscular Hemoglobin 28.2 pg (27.0-31.0); Mean Corpuscular Volume 88.6 fl (80.0-94.0); Mean Platelet Volume 8.1 fL (7.4-10.4); Platelet Count 174 thou/uL (130-400); RBC Distribution Width 16.5 % (11.5-14.5); Red Blood Cell (RBC) Count 6.04 mill/uL (4.70-6.10)
[2017-07-19 16:51] LABS: Anion Gap 14 mmol/L (10-20); BUN (Urea Nitrogen) 25 mg/dL (8.4-25.7); Calc. Creatinine Clearance 0 mL/min (70-130); Calcium 9.7 mg/dL (7.8-10.44); Carbon Dioxide 23 mmol/L (23-31); Chloride 107 mmol/L (98-107); Estimated GFR-MDRD 42; Glucose 67 mg/dL (83-110); Sodium 140 mmol/L (136-145)
--- NOTE | 2017-07-19 17:24 | RAD ---
CHEST PA AND LATERAL: 07/19/17 HISTORY: 87-year-old male for preoperative evaluation. Left transvenous pacemaker. Atherosclerotic ectatic changes of the aorta. Some focal elevation of the anterior right hemidiaphragm with some colon interposed between hemidiaphragm and liver. No confluen t pneumonia, overt edema or pleural effusion. IMPRESSION: No acute intrathoracic disease. Atherosclerotic ectatic changes of the aorta. No evidence of pneumoni a, edema or other acute process. POS: [facility]
--- NOTE | 2017-07-24 08:45 | EKG ---
Test Reason : Blood Pressure : / mmHG Vent. Rate : 054 BPM Atrial Rate : 178 BPM P-R Int : 000 ms QRS Dur : 150 ms QT Int : 478 ms P-R-T Axes : 000 -71 115 degrees QTc Int : 453 ms Wide QRS rhythm Left axis deviation Right bundle branch block Left ventricular hypertrophy with QRS widening and repolarization abnormality Possible Lateral infarct , age undetermined Abnormal ECG Confirmed by RIKKI RODAS, ARNAV ([id number]) on 07/24/2017 8:45:03 AM Referred By: YARI Confirmed By:ARNAV BRANDT MD
== END 2017-07-19 15:35 | disposition home or self-care (01) ==
LOC: LABBT 15:34
PROVIDERS: ATTEND Thoracic Surgery (Cardiothoracic Vascular Surgery)
DX: Z01.818 Encounter for other preprocedural examination (principal); I71.4 Abdominal aortic aneurysm, without rupture; I70.0 Atherosclerosis of aorta
CPT/HCPCS: 36430; 71046; 80048; 85027; 86850; 86900; 86901; 93005; 93010